=== PATIENT | male | born 1940 | race Caucasian/White ===

== ENCOUNTER 2019-06-26 07:23 | Emergency (ER) | payer OTHER ==
[2019-06-26] MEDS ORDERED: ORPHENADRINE CITRATE 30 MG/ML ML ONE (07:48)
[2019-06-26] MEDS ORDERED: KETOROLAC TROMETHAMINE 30MG/ML ONE (07:49)
== END 2019-06-26 09:11 | disposition home or self-care (01) ==
LOC: EDH 07:23
DX: M25.561 Pain in right knee (principal); G89.29 Other chronic pain; I10 Essential (primary) hypertension; E78.00 Pure hypercholesterolemia, unspecified; Z98.890 Other specified postprocedural states
CPT/HCPCS: 73562; 96372 ×2; 99283; J1885; J2360